=== PATIENT | female | born 1985 | race Caucasian/White ===

== ENCOUNTER 2016-11-29 08:43 | Emergency (ER) | payer MEDICAID ==
[2016-11-29 08:46] VITALS: RESP 14; TEMP 98.4
--- NOTE | 2016-11-29 09:05 | EDPHY ---
H & P Stated Complaint: Sore throat Time Seen by Provider: 11/29/16 08:51 HPI/ROS: CHIEF COMPLAINT: Sore throat, fever, myalgias HISTORY OF PRESENT ILLNESS: The patient presents to the ED with a 1 day history of sore throat, fevers and myalgias. The patient reports moderate to severe odynophagia. The patient denies cough, abdominal pain, rash or significant congestion. The patient has no significant past medical history. The patient did not receive a flu shot this year. The patient denies additional acute complaints. She reports her pain level as a 9/10. REVIEW OF SYSTEMS: A comprehensive 10 point review of systems is otherwise negative aside from elements mentioned in the history of present illness. Source: Patient Exam Limitations: No limitations - Personal History LMP (Females 10-55): Unknown Current Tetanus Diphtheria and Acellular Pertussis (TDAP): Yes Tetanus Vaccine Date: 2010 - Medical/Surgical History Hx Asthma: No Hx Chronic Respiratory Disease: No Hx Diabetes: No Hx Cardiac Disease: No Hx Renal Disease: No Hx Cirrhosis: No Hx Alcoholism: No Hx HIV/AIDS: No Hx Splenectomy or Spleen Trauma: No Other PMH: PSH: wisdom teeth;. PMH: PTSD, depression - Social History Smoking Status: Never smoked - Physical Exam Exam: General Appearance: Alert, no distress Eyes: Pupils equal and round no pallor or injection ENT, Mouth: Bilateral tonsillar erythema with exudate noted Respiratory: There are no retractions, lungs are clear to auscultation Cardiovascular: Regular rate and rhythm Gastrointestinal: Abdomen is soft and nontender, no masses, bowel sounds normal Neurological: A&O, normal motor function, normal sensory exam, normal cranial nerves Skin: Warm and dry, no rashes Musculoskeletal: Neck is supple, negative Kernig and Brudzinski sign. Extremities: symmetrical, full range of motion Constitutional: Initial Vital Signs Temperature (C) 36.9 C 11/29/16 08:44 Heart Rate 105 H 11/29/16 08:44 Respiratory Rate 14 11/29/16 08:44 Blood Pressure 118/87 H 11/29/16 08:44 O2 Sat (%) 97 11/29/16 08:44 O2 Delivery Mode Room Air Allergies/Adverse Reactions: sertraline HCl [From Zoloft] Allergy (Intermediate, Verified 11/06/15 16:51) Rash Home Medications: Medication Instructions Recorded Lexapro 09/25/16 Ibuprofen [Motrin (*)] 600 mg PO TID PRN #30 tab 11/29/16 Ondansetron Odt [Zofran Odt] 4 mg PO Q4PRN PRN #20 tab 11/29/16 Oseltamivir Phosphate [Tamiflu 75 75 mg PO BID #10 cap 11/29/16 mg (*)] Medical Decision Making ED Course/Re-evaluation: The patient presents to emergency department with sore throat and myalgias. Her rapid strep test is negative. The patient will be started on Tamiflu for possible influenza like infection. The patient will also be provided a prescription for 600 mg ibuprofen tablets. The patient has no evidence of a peritonsillar abscess or retropharyngeal abscess. Clinically the patient has no evidence of meningitis. The patient will be referred to our on-call ENT physician for further evaluation of any ongoing pharyngitis. The patient will be discharged home with customary aftercare instructions and return precautions. Differential Diagnosis: Differential diagnosis considered includes streptococcal pharyngitis, viral pharyngitis, influenza, peritonsillar abscess - Data Points Laboratory Results: 11/29/16 11/29/16 Unknown 09:05 Group A Strep Screen NEGATIVE (NEGATIVE) Group A Strep DNA Pending Departure - Departure Disposition: Home, Routine, Self-Care Clinical Impression: Sore throat, Viral syndrome, Influenza-like illness Condition: Good Instructions: Pharyngitis (ED) Additional Instructions: 1. Please take Tamiflu as directed for possible flu 2. Your rapid strep test is negative. We will contact you if your culture becomes positive. 3. Take Ibuprofen or Motrin 600 mg by mouth three times a day. 4. Zofran as needed for nausea 5. Return to the ED for markedly worsening symptoms or other concerns. Referrals: Kathleen Josue MD [Medical Doctor] - As per Instructions Prescriptions: Ibuprofen [Motrin (*)] 600 mg PO TID PRN #30 tab PRN Reason: for pain Ondansetron Odt [Zofran Odt] 4 mg PO Q4PRN PRN #20 tab PRN Reason: For Nausea Oseltamivir Phosphate [Tamiflu 75 mg (*)] 75 mg PO BID #10 cap
[2016-11-29 09:51] VITALS: BP 128/78; PULSE 70; O2SAT 94
== END 2016-11-29 09:50 | disposition home or self-care (01) ==
DX: J11.1 Influenza due to unidentified influenza virus with other respiratory manifestations (principal)